=== PATIENT | female | born 1985 | race Caucasian/White ===

== ENCOUNTER 2024-03-22 00:50 | Emergency (ER) | payer MEDICAID, SELFPAY ==
[2024-03-22 00:51] VITALS: BMI 40.7
[2024-03-22 00:58] VITALS: BP 166/79; PULSE 121; RESP 26; TEMP 37.6; O2SAT 97
[2024-03-22 01:09] VITALS: TEMP 37.6
[2024-03-22] MEDS: ACETAMINOPHEN 500 MG TABLET 1000 MG PO (01:09)
[2024-03-22] MEDS: DEXAMETHASONE SOD PHOS INJ 10 MG/ML VIAL 20 MG PO (01:09)
[2024-03-22] MEDS: ALBUTEROL/IPRATROPIUM (Duoneb) RT SOL 3 ML NEBU 6 ML INH (01:19)
[2024-03-22 01:22] VITALS: PULSE 76; RESP 18; O2SAT 99
--- NOTE | 2024-03-22 01:53 | PD.ASTHM ---
ED Asthma RME/HPI General Chief Complaint: Asthma Stated Complaint: CHEST TIGHTNESS, HX ASTHMA; INHALER NOT HELPING Time Seen by Provider: 03/22/24 01:01 Arrival date/time: 03/22/24 00:50 38F with history of asthma presents to ED with 2 days of cough and SOB. Limitations: no limitations Related Data Previous Rx's ?Medication ?Instructions ?Recorded albuterol sulfate 90 mcg/actuation 2 puff inhalation QID PRN 03/26/20 aerosol inhaler (ProAir HFA) shortness of breath or wheezing #8.5 grams fluticasone 250 mcg-salmeterol 50 1 each inhalation Q12H #60 ea 05/09/20 mcg/dose blistr powdr for inhalation (Advair Diskus) prednisone 10 mg tablet 30 mg (3 x 10 mg) PO BID #18 tabs 05/09/20 hydrocodone 5 mg-acetaminophen 325 1 tab PO Q8H PRN pain #10 tabs 09/10/22 mg tablet dicyclomine 20 mg tablet 20 mg PO TID PRN pain #30 tabs 11/28/22 ondansetron 4 mg disintegrating 4 mg PO Q8H PRN nausea and 11/28/22 tablet vomiting #10 tabs cyclobenzaprine 10 mg tablet 10 mg PO HS #10 tabs 05/12/23 ibuprofen 800 mg tablet 800 mg PO Q8H PRN pain #14 tabs 05/12/23 meloxicam 7.5 mg tablet 7.5 mg PO QDAY #45 tabs 09/25/23 celecoxib 200 mg capsule 200 mg PO BID #60 caps 12/11/23 prednisone 50 mg tablet 50 mg PO QDAY #5 tabs 01/12/24 albuterol sulfate 90 mcg/actuation 2 puff inhalation Q6H PRN 03/22/24 aerosol inhaler (Ventolin HFA) shortness of breath or wheezing #8.5 grams prednisone 20 mg tablet 20 mg PO BID 4 days #8 tabs 03/22/24 Allergies Allergy/AdvReac Type Severity Reaction Status Date / Time Sulfa (Sulfonamide Allergy Severe ITCHY Verified 03/22/24 00:54 Antibiotics) SWELLING Review of Systems Review of Systems Systems Reviewed: All systems reviewed, normal except as documented Constitutional Constitutional: Reports system reviewed and no additional complaints, except as documented, Denies fever(s) and Denies headache(s) ENT Ears, Nose, Mouth, and Throat: Denies disequilibrium and Denies headache(s) Cardiovascular Cardiovascular: Reports system reviewed and no additional complaints, except as documented, Denies chest pain and Reports dyspnea Respiratory Respiratory: Reports system reviewed and no additional complaints, except as documented, Reports as per HPI, Reports cough and Reports dyspnea Gastrointestinal Gastrointestinal: Reports system reviewed and no additional complaints, except as documented, Denies abdominal pain, Denies nausea and Denies vomiting Neurologic Neurologic: Reports system reviewed and no additional complaints, except as documented, Denies confusion, Denies disequilibrium and Denies headache(s) Psychiatric Psychiatric: Denies confusion Past Medical History Past Medical History NEUROLOGIC: Positive Neurological Disorders, Seizures and Migraine CARDIAC: Positive Cardiac Disorders and Valvular Heart Disease (per patient mitral valve prolaspe); Negative Congestive Heart Failure RESPIRATORY: Positive Asthma and Pneumonia; Negative Chronic Obstructive Pulmonary Disease (COPD), Smoking or Smoking Exposure GASTROINTESTINAL: Positive Gastrointestinal Disorders and Gall Bladder Disease GENITOURINARY: Negative Genitourinary Disorders or Renal Disease REPRODUCTIVE: Positive Previous Pregnancies MUSCULOSKELETAL: Positive Musculoskeletal Disorders, Arthritis, Scoliosis and Fractures ENDOCRINE: Negative Endocrine Disorders, Diabetes Mellitus Type 1 or Diabetes Mellitus Type 2 HEMATOLOGIC: Negative Blood Disorders PSYCHO/SOCIAL: Positive Depression and Attention Deficit Hyperactivity Disorder OTHER HISTORY: Positive Shingles, MRSA and Chicken Pox; Negative Hospitalization, Falls, Blood Transfusions, Anesthesia Reactions or Cancer Family History FAMILY HISTORY: Positive Family Surgery; Negative Family Respiratory Disorders, Family Cardiac Disorders, Family Cancer or Family Anesthesia Reaction Surgical History SURGICAL: Positive Abdominal Surgery, Tubal Ligation and Section Social History SMOKING STATUS: Never smoker SUBSTANCE USE: does not use ED Exam General Limitations: Present no limitations General appearance: Present alert and in no apparent distress Head Head exam: Present atraumatic Eye Eye exam: Present normal appearance, PERRL and EOMI ENT ENT exam: Present normal exam, normal oropharynx and mucous membranes moist Neck Neck exam: Present normal inspection, full ROM and trachea midline Chest Chest inspection: Present normal inspection and symmetric chest wall rise Respiratory Respiratory exam: Present prolonged expiratory phase Cardiovascular Cardiovascular exam: Present regular rate, normal rhythm and normal heart sounds Abdominal Exam Abdominal exam: Present soft and normal bowel sounds Extremities Exam Extremities exam: Present normal inspection and full ROM Back Exam Back exam: Present normal inspection and full ROM Neurological Exam Neurological exam: Present alert, oriented X3 and CN II-XII intact Psychiatric Psychiatric exam: Present normal affect and normal mood Skin Skin exam: Present warm, dry, intact and normal color Course Quality Measures none Orders Category Date Time Status Bedside COVID-19 Antigen Test NOW Care 03/22/24 01:02 Active Bedside Influenza A&B Antigen Test NOW Care 03/22/24 01:02 Active Acetaminophen Tab [Tylenol ES Tab] Med 03/22/24 01:02 Discontinued 1,000 mg PO X1 ONE Albuterol/Ipratr Rt Jo Ann [Duoneb Rt Jo Ann] Med 03/22/24 01:02 Discontinued 6 ml INH X1 ONE Dexamethasone Inj [Decadron Inj] Med 03/22/24 01:02 Discontinued 20 mg PO X1 ONE Vital Signs Vital signs: Vital Signs Temperature 99.7 F 03/22/24 00:58 Pulse Rate 121 H 03/22/24 00:58 Respiratory Rate 26 H 03/22/24 00:58 Blood Pressure 166/79 H 03/22/24 00:58 Pulse Oximetry (%) 97 03/22/24 00:58 Oxygen Delivery Method Room Air 03/22/24 00:58 Asthma MDM Narrative MDM Narrative:: 38F with history of asthma presents to ED with 2 days of cough and SOB. Physical exam reveals no wheezing in lungs, but prolonged expiration. ENT clear. Patient is afebrile, calm, and alert. Swabs neg. Meds relieved symptoms. Likely URI causing asthma exacerbation. Patient data External records reviewed:: [facility] previous records Clinical information provided by:: patient Social determinants that could affect healthcare access:: none Patient has the following chronic illnesses:: asthma How is presenting disease/condition affected by chronic disease/condition?: exacerbated by Evaluation data The following diagnostics were reviewed and interpreted by me:: lab results Lab and/or radiology exams considered but not ordered:: ordered Interpretation Summary: above Medications / Prescriptions Medications or Prescriptions considered but not ordered:: ordered Medication administrations:: Medication Administration History Discontinued Medications Acetaminophen (Acetaminophen 500 Mg Tablet) 1,000 mg PO X1 ONE Stop: 03/22/24 01:03 Last Admin: 03/22/24 01:09 Dose: 1,000 mg Documented By: HARPER Albuterol/Ipratropium (Albuterol/Ipratropium (Duoneb) Rt Jo Ann 3 Ml Nebu) 6 ml INH X1 ONE Stop: 03/22/24 01:03 Last Admin: 03/22/24 01:19 Dose: 6 ml Documented By: Dexamethasone Sodium Phosphate (Dexamethasone Sod Phos Inj 10 Mg/Ml Vial) 20 mg PO X1 ONE Stop: 03/22/24 01:03 Last Admin: 03/22/24 01:09 Dose: 20 mg Documented By: HARPER Consultations Consultation(s) initiated? (list below): No Diagnosis Differential diagnosis asthma: Acute exacerbation, Status asthmaticus, Acute asthmatic bronchitis, PE, Pneumonia, COPD exacerbation, Pulmonary edema systolic, Pulmonary edema dystolic, ARDS, Pneumothorax and Foreign body in trachea Most likely diagnosis given after review of the tests above:: asthma exacerbation Admission Indicated Admission indicated?: not indicated Admission Request Was there a request for admission?: No Disposition Plan Disposition Plan: Discharge Discharge Attestation Discharge Attestation: The patient and all family members were given an opportunity to ask questions and understood the discharge instructions. Discharge instructions specifically effects, indications for sooner follow up or return to the emergency department, and the expected course of current diagnosis. Patient condition: Stable Discharge Plan Plan Patient Disposition: HOME (Self Care) Disposition Comment: Stable Prescriptions/Referrals Prescriptions/Med Rec: New prednisone 20 mg tablet 20 mg PO BID 4 Days Qty: 8 0RF albuterol sulfate [Ventolin HFA] 90 mcg/actuation HFA aerosol inhaler 2 puff inhalation Q6H PRN (Reason: shortness of breath or wheezing) Qty: 8.5 0RF No Action meloxicam 7.5 mg tablet 7.5 mg PO QDAY Qty: 45 3RF celecoxib 200 mg capsule 200 mg PO BID Qty: 60 3RF albuterol sulfate [ProAir HFA] 90 mcg/actuation HFA aerosol inhaler 2 puff inhalation QID PRN (Reason: shortness of breath or wheezing) Qty: 8.5 0RF fluticasone propion-salmeterol [Advair Diskus] 250-50 mcg/dose blister with device 1 each INH Q12H MDD 2 Qty: 60 0RF prednisone 10 mg tablet 30 mg PO BID Qty: 18 0RF Rx Instructions: administer with food or milk hydrocodone-acetaminophen 5-325 mg tablet 1 tab PO Q8H MDD 10 PRN (Reason: pain) Qty: 10 0RF dicyclomine 20 mg tablet 20 mg PO TID PRN (Reason: pain) Qty: 30 0RF ondansetron 4 mg tablet,disintegrating 4 mg PO Q8H PRN (Reason: nausea and vomiting) Qty: 10 0RF cyclobenzaprine 10 mg tablet 10 mg PO HS Qty: 10 0RF ibuprofen 800 mg tablet 800 mg PO Q8H PRN (Reason: pain) Qty: 14 0RF prednisone 50 mg tablet 50 mg PO QDAY Qty: 5 0RF Referrals: Dean Sherwood PA-C [Primary Care Provider] - In 1 week Problem List Clinical Impression: Asthma with acute exacerbation Patient/Caregiver Discharge Instructions Additional Instructions: Please follow-up with PCP within 24-48 hours and return immediately if symptoms worsen. Print Language: Polish Stand Alone Forms: Patient Portal Info Letter GAMALIEL/SHAYAN Supervising Physician GAMALIEL/SHAYAN Supervising Physician: Dr. Valero
[2024-03-22] MEDS: BUDESONIDE RT 0.5 MG/2 ML NEBU INH (02:44)
[2024-03-22] MEDS: ALBUTEROL/IPRATROPIUM (Duoneb) RT SOL 3 ML NEBU INH (02:44)
[2024-03-22 02:48] VITALS: PULSE 116; RESP 18; O2SAT 98
[2024-03-22 03:45] VITALS: PULSE 105; RESP 18; TEMP 36.6; O2SAT 99
== END 2024-03-22 03:45 | disposition home or self-care (01) ==
PROVIDERS: Emergency Provider Emergency Medicine; PCP Physician Assistant
DX: J45.901 Unspecified asthma with (acute) exacerbation (principal)
CPT/HCPCS: 87400; 87811; 94640; 99284; A9270; J1100

== ENCOUNTER 2024-05-07 08:02 | Emergency (ER) | payer MEDICAID, SELFPAY ==
[2024-05-07 08:03] VITALS: BMI 41.0
[2024-05-07 08:18] VITALS: BP 158/86; PULSE 86; RESP 20; TEMP 37.2; O2SAT 95
[2024-05-07] MEDS: DEXAMETHASONE SOD PHOS INJ 10 MG/ML VIAL PO (08:27)
[2024-05-07] MEDS: ALBUTEROL/IPRATROPIUM (Duoneb) RT SOL 3 ML NEBU INH (08:37)
--- NOTE | 2024-05-07 08:38 | EDNOTE_ITS ---
<Statement entered by Faby Blood MD - 05/07/24 17:53> As co-signing physician, I was present and available for consult prn. I concur with the plan and care as documented by the midlevel provider. ED Allergic Reaction RME/HPI General Chief complaint: Allergic Reaction Stated complaint: ALLERGIC REACTION FOR 2 DAYS Time Seen by Provider: 05/07/24 08:03 Arrival date/time: 05/07/24 08:02 38-year-old female presents the emergency department today stating that she believes she had allergic reaction to her cats 2 days ago patient reports she still has runny nose and congestion and wheezing. Patient reports that she ran out of her inhaler there are no other associated symptoms or aggravating factors no other modifying factors, patient denies taking medication before coming to ER today Limitations: no limitations Related Data Previous Rx's ?Medication ?Instructions ?Recorded albuterol sulfate 90 mcg/actuation 2 puff inhalation QID PRN 03/26/20 aerosol inhaler (ProAir HFA) shortness of breath or wheezing #8.5 grams fluticasone 250 mcg-salmeterol 50 1 each inhalation Q12H #60 ea 05/09/20 mcg/dose blistr powdr for inhalation (Advair Diskus) prednisone 10 mg tablet 30 mg (3 x 10 mg) PO BID #18 tabs 05/09/20 hydrocodone 5 mg-acetaminophen 325 1 tab PO Q8H PRN pain #10 tabs 09/10/22 mg tablet dicyclomine 20 mg tablet 20 mg PO TID PRN pain #30 tabs 11/28/22 ondansetron 4 mg disintegrating 4 mg PO Q8H PRN nausea and 11/28/22 tablet vomiting #10 tabs cyclobenzaprine 10 mg tablet 10 mg PO HS #10 tabs 05/12/23 ibuprofen 800 mg tablet 800 mg PO Q8H PRN pain #14 tabs 05/12/23 meloxicam 7.5 mg tablet 7.5 mg PO QDAY #45 tabs 09/25/23 celecoxib 200 mg capsule 200 mg PO BID #60 caps 12/11/23 prednisone 50 mg tablet 50 mg PO QDAY #5 tabs 01/12/24 albuterol sulfate 90 mcg/actuation 2 puff inhalation Q6H PRN 03/22/24 aerosol inhaler (Ventolin HFA) shortness of breath or wheezing #8.5 grams albuterol sulfate 90 mcg/actuation 2 puff inhalation Q6H PRN 05/07/24 aerosol inhaler (Ventolin HFA) shortness of breath or wheezing #8.5 grams prednisone 10 mg tablet 30 mg (3 x 10 mg) PO BID 3 days 05/07/24 #18 tabs Allergies Allergy/AdvReac Type Severity Reaction Status Date / Time Sulfa (Sulfonamide Allergy Severe ITCHY Verified 05/07/24 08:04 Antibiotics) SWELLING Review of Systems Review of Systems Systems Reviewed: All systems reviewed, normal except as documented Constitutional Constitutional: Reports system reviewed and no additional complaints, except as documented, Denies fever(s) and Denies headache(s) Eyes Eyes: Reports system reviewed and no additional complaints, except as documented and Denies blurry vision ENT Ears, Nose, Mouth, and Throat: Reports system reviewed and no additional complaints, except as documented, Denies headache(s), Denies nasal congestion and Denies nasal discharge Cardiovascular Cardiovascular: Reports system reviewed and no additional complaints, except as documented, Denies chest pain and Denies dyspnea Respiratory Respiratory: Reports system reviewed and no additional complaints, except as documented, Reports chest congestion, Reports cough, Denies dyspnea and Reports wheezing Gastrointestinal Gastrointestinal: Reports system reviewed and no additional complaints, except as documented and Denies abdominal pain Integumentary/Breasts Skin/Breast: Reports system reviewed and no additional complaints, except as documented and Denies rash Neurologic Neurologic: Reports system reviewed and no additional complaints, except as documented, Reports as per HPI and Denies headache(s) Allergic/Immunologic Allergic/Immunologic: Reports wheezing Past Medical History Past Medical History NEUROLOGIC: Positive Neurological Disorders, Seizures and Migraine CARDIAC: Positive Cardiac Disorders and Valvular Heart Disease (per patient mitral valve prolaspe); Negative Congestive Heart Failure RESPIRATORY: Positive Asthma and Pneumonia; Negative Chronic Obstructive Pulmonary Disease (COPD), Smoking or Smoking Exposure GASTROINTESTINAL: Positive Gastrointestinal Disorders and Gall Bladder Disease GENITOURINARY: Negative Genitourinary Disorders or Renal Disease REPRODUCTIVE: Positive Previous Pregnancies MUSCULOSKELETAL: Positive Musculoskeletal Disorders, Arthritis, Scoliosis and Fractures ENDOCRINE: Negative Endocrine Disorders, Diabetes Mellitus Type 1 or Diabetes Mellitus Type 2 HEMATOLOGIC: Negative Blood Disorders PSYCHO/SOCIAL: Positive Depression and Attention Deficit Hyperactivity Disorder OTHER HISTORY: Positive Shingles, MRSA and Chicken Pox; Negative Hospitalization, Falls, Blood Transfusions, Anesthesia Reactions or Cancer Family History FAMILY HISTORY: Positive Family Surgery; Negative Family Respiratory Disorders, Family Cardiac Disorders, Family Cancer or Family Anesthesia Reaction Surgical History SURGICAL: Positive Abdominal Surgery, Tubal Ligation and Section Social History SMOKING STATUS: Never smoker SUBSTANCE USE: does not use ED Exam General Limitations: Present no limitations General appearance: Present alert and in no apparent distress Head Head exam: Present atraumatic, normocephalic and normal inspection Eye Eye exam: Present normal appearance, PERRL and EOMI; Absent conjunctival injection ENT ENT exam: Present normal exam, normal oropharynx and mucous membranes moist Neck Neck exam: Present normal inspection, full ROM and trachea midline Chest Chest inspection: Present normal inspection and symmetric chest wall rise Respiratory Respiratory exam: Present wheezes; Absent respiratory distress Cardiovascular Cardiovascular exam: Present regular rate, normal rhythm and normal heart sounds Abdominal Exam Abdominal exam: Present soft and normal bowel sounds; Absent distention or tenderness Extremities Exam Extremities exam: Present normal inspection and full ROM Back Exam Back exam: Present normal inspection and full ROM Neurological Exam Neurological exam: Present alert, oriented X3 and CN II-XII intact Psychiatric Psychiatric exam: Present normal affect and normal mood Skin Skin exam: Present warm, dry, intact and normal color Course Quality Measures none Orders Category Date Time Status Bedside Influenza A&B Antigen Test NOW Care 05/07/24 08:24 Completed Albuterol/Ipratr Rt Jo Ann [Duoneb Rt Jo Ann] Med 05/07/24 08:24 Discontinued 3 ml INH X1 ONE Dexamethasone Inj [Decadron Inj] Med 05/07/24 08:24 Discontinued 10 mg PO X1 ONE Vital Signs Vital signs: Vital Signs Temperature 99.0 F 05/07/24 08:18 Pulse Rate 86 05/07/24 08:18 Respiratory Rate 20 05/07/24 08:18 Blood Pressure 158/86 H 05/07/24 08:18 Pulse Oximetry (%) 95 05/07/24 08:18 Oxygen Delivery Method Room Air 05/07/24 08:18 O2 saturation 95% room air within normal limits Allergic Reaction MDM Narrative MDM Narrative:: 38-year-old female presents the emergency department today stating that she believes she had allergic reaction to her cats 2 days ago patient reports she still has runny nose and congestion and wheezing. Patient reports that she ran out of her inhaler there are no other associated symptoms or aggravating factors no other modifying factors, patient denies taking medication before coming to ER today On exam patient well-appearing patient does not appear ill or toxic and in no acute distress On exam patient does have wheezing Patient checked for the flu which came back negative Patient given steroids and a breathing treatment At the time of reevaluation patient lungs are clear to auscultation patient discharged with inhaler Patient discharged home in no distress to follow-up with primary care doctor in the next 24 to 48 hours and for any worsening symptoms to return to the ER immediately Patient data External records reviewed:: [facility] previous records Clinical information provided by:: patient Social determinants that could affect healthcare access:: none Patient has the following chronic illnesses:: Asthma, allergies How is presenting disease/condition affected by chronic disease/condition?: no chronic disease Evaluation data The following diagnostics were reviewed and interpreted by me:: lab results Lab and/or radiology exams considered but not ordered:: labs obtained Interpretation Summary: Remind me Medications / Prescriptions Medications or Prescriptions considered but not ordered:: Given Medication administrations:: Medication Administration History Discontinued Medications Albuterol/Ipratropium (Albuterol/Ipratropium (Duoneb) Rt Jo Ann 3 Ml Nebu) 3 ml INH X1 ONE Stop: 05/07/24 08:25 Last Admin: 05/07/24 08:37 Dose: 3 ml Documented By: GILLES Dexamethasone Sodium Phosphate (Dexamethasone Sod Phos Inj 10 Mg/Ml Vial) 10 mg PO X1 ONE Stop: 05/07/24 08:25 Last Admin: 05/07/24 08:27 Dose: 10 mg Documented By: AC Given Consultations Consultation(s) initiated? (list below): No Diagnosis Differential Diagnosis allergic reaction: anaphylaxis, allergic reaction and urticaria Most likely diagnosis given after review of the tests above:: Allergic reaction Admission Indicated Admission indicated?: not indicated Admission Request Was there a request for admission?: No Disposition Plan Disposition Plan: Discharge Discharge Attestation Discharge Attestation: The patient and all family members were given an opportunity to ask questions and understood the discharge instructions. Discharge instructions specifically effects, indications for sooner follow up or return to the emergency department, and the expected course of current diagnosis. Patient condition: Stable Discharge Plan Plan Patient Disposition: HOME (Self Care) Disposition Comment: Stable Prescriptions/Referrals Prescriptions/Med Rec: New prednisone 10 mg tablet 30 mg PO BID 3 Days Qty: 18 0RF albuterol sulfate [Ventolin HFA] 90 mcg/actuation HFA aerosol inhaler 2 puff inhalation Q6H PRN (Reason: shortness of breath or wheezing) Qty: 8.5 0RF No Action meloxicam 7.5 mg tablet 7.5 mg PO QDAY Qty: 45 3RF celecoxib 200 mg capsule 200 mg PO BID Qty: 60 3RF albuterol sulfate [ProAir HFA] 90 mcg/actuation HFA aerosol inhaler 2 puff inhalation QID PRN (Reason: shortness of breath or wheezing) Qty: 8.5 0RF fluticasone propion-salmeterol [Advair Diskus] 250-50 mcg/dose blister with device 1 each INH Q12H MDD 2 Qty: 60 0RF prednisone 10 mg tablet 30 mg PO BID Qty: 18 0RF Rx Instructions: administer with food or milk hydrocodone-acetaminophen 5-325 mg tablet 1 tab PO Q8H MDD 10 PRN (Reason: pain) Qty: 10 0RF dicyclomine 20 mg tablet 20 mg PO TID PRN (Reason: pain) Qty: 30 0RF ondansetron 4 mg tablet,disintegrating 4 mg PO Q8H PRN (Reason: nausea and vomiting) Qty: 10 0RF cyclobenzaprine 10 mg tablet 10 mg PO HS Qty: 10 0RF ibuprofen 800 mg tablet 800 mg PO Q8H PRN (Reason: pain) Qty: 14 0RF prednisone 50 mg tablet 50 mg PO QDAY Qty: 5 0RF albuterol sulfate [Ventolin HFA] 90 mcg/actuation HFA aerosol inhaler 2 puff inhalation Q6H PRN (Reason: shortness of breath or wheezing) Qty: 8.5 0RF Problem List Clinical Impression: Allergic reaction Patient/Caregiver Discharge Instructions Education Materials: ED Medicine Reaction: Allergic Additional Instructions: Please follow up with your primary care doctor in the next 24-48hrs for any worsening symptoms return here immediately Print Language: Grenadian Stand Alone Forms: Mi Award Info., Patient Portal Info Letter PA/[employer] PROF[employer]OR Supervising Physician PA/[employer] PROFESSOR Supervising Physician: Dr. blood
[2024-05-07 08:39] VITALS: PULSE 85; RESP 18; O2SAT 99
== END 2024-05-07 08:49 | disposition home or self-care (01) ==
LOC: SERX 08:51
PROVIDERS: Emergency Provider Emergency Medicine; PCP Physician Assistant
DX: R09.81 Nasal congestion (principal); R09.89 Other specified symptoms and signs involving the circulatory and respiratory systems
CPT/HCPCS: 87400; 94640; 99283; A9270; J1100

== ENCOUNTER 2024-07-29 12:59 | Outpatient (AMB) | payer MEDICAID, SELFPAY ==
[2024-07-29 13:10] VITALS: BP 117/77; PULSE 81; RESP 18; TEMP 36.4; O2SAT 96; BMI 36.9
--- NOTE | 2024-07-29 13:10 | ORTHONT_ITS ---
Vital signs 07/29/24 13:10 07/29/24 13:21 Height 1.73 m Height Method Stated Weight 110.478 kg Weight Measurement Method Standing Scale BMI 36.9 BP 117/77 117/77 Blood Pressure Source Automatic Cuff Blood Pressure Location Right Upper Arm Position Sitting Respiration 18 18 Pulse 81 81 Pulse Source Monitor Temp 97.6 F 97.6 F Temp Source Temporal Artery Scan Pulse Oximetry (%) 96 96 Oxygen Delivery Method Room Air Med/Allergies Allergies & Medications Allergies Sulfa (Sulfonamide Antibiotics) Allergy (Severe, Verified 07/29/24 13:12) ITCHY SWELLING Medication Reconciliation albuterol sulfate 90 mcg/actuation aerosol inhaler (ProAir HFA) 2 puff inhalation QID PRN shortness of breath or wheezing #8.5 grams 03/26/20 [Rx Confirmed 07/29/24] fluticasone 250 mcg-salmeterol 50 mcg/dose blistr powdr for inhalation (Advair Diskus) 1 each inhalation Q12H #60 ea 05/09/20 [Rx Confirmed 07/29/24] prednisone 10 mg tablet 30 mg (3 x 10 mg) PO BID #18 tabs 05/09/20 [Rx Confirmed 07/29/24] hydrocodone 5 mg-acetaminophen 325 mg tablet 1 tab PO Q8H PRN pain #10 tabs 09/10/22 [Rx Confirmed 07/29/24] dicyclomine 20 mg tablet 20 mg PO TID PRN pain #30 tabs 11/28/22 [Rx Confirmed 07/29/24] ondansetron 4 mg disintegrating tablet 4 mg PO Q8H PRN nausea and vomiting #10 tabs 11/28/22 [Rx Confirmed 07/29/24] cyclobenzaprine 10 mg tablet 10 mg PO HS #10 tabs 05/12/23 [Rx Confirmed 07/29/24] ibuprofen 800 mg tablet 800 mg PO Q8H PRN pain #14 tabs 05/12/23 [Rx Confirmed 07/29/24] meloxicam 7.5 mg tablet 7.5 mg PO QDAY #45 tabs 09/25/23 [Rx Confirmed 07/29/24] celecoxib 200 mg capsule 200 mg PO BID #60 caps 12/11/23 [Rx Confirmed 07/29/24] prednisone 50 mg tablet 50 mg PO QDAY #5 tabs 01/12/24 [Rx Confirmed 07/29/24] albuterol sulfate 90 mcg/actuation aerosol inhaler (Ventolin HFA) 2 puff inhalation Q6H PRN shortness of breath or wheezing #8.5 grams 03/22/24 [Rx Confirmed 07/29/24] albuterol sulfate 90 mcg/actuation aerosol inhaler (Ventolin HFA) 2 puff in halation Q6H PRN shortness of breath or wheezing #8.5 grams 05/07/24 [Rx Confirmed 07/29/24] Office Procedures GNS Level of Care Nursing/Assessment Patient Status: Established Patient Nursing Assessment/Reassesment: Medication Reconciliation, Update PMH in EMR and Vital Signs Coordination of Care: Complex Care and Chronic Disease 1-5, Education Complex Pt/Fam, Consent,records obtained, informed consent, Results/Orders obtained and Staff clarify orders Established Patient Charge Established Patient Point Assignment: 95 Established Patient Point Charge: EP Level 3 (80-115) Surgical Proc/IM SQ injection Major Surgical Procedure: Yes (KNEE INJECTION) Medication Given Medication Given Medication Given: Yes Documented Dose Given: 4 Route: Infiitration Medication Given Medication Given Medication Given: Yes Documented Dose Given: 1 Route: Infiitration Office Meds Xylocaine 10 mg/mL (1 %) injection solution Performing Provider: Dean Robles MD Performing Location: [facility] Administered by: Dean Robles MD on 07/29/24 13:18 Dose Route Admin Location Dispensed Lot Number Expiration Date [facility] [employer] Lecturer 20 mL Infiltration 20 mL [id number] 09/04/27 80092-998-06 [facility] triamcinolone acetonide 40 mg/mL suspension for injection Performing Provider: Dean Robles MD Performing Location: [facility] Administered by: Dean Robles MD on 07/29/24 13:18 Dose Route Admin Location Dispensed Lot Number Expiration Date [facility] [employer] Lecturer 40 mg intra-articular KNEE 1 mL [id number] 03/05/26 6332-3583-32 [facility] [place] Intake Visit Data Collection New Patient or Established: Established Patient (seen at [facility] within 3 years) Reason for Visit:: RT KNEE INJECTION Seen by Clinical Staff ONLY (RN/MA): No Verbal consent obtained for Telemed visit?: No Momd Teacher Required: No PCP or OBGYN visit in last 3 months: Yes Hx Now: No Do You Feel Safe at Home: Yes Authorities Contacted: N/A Questionairres Past Medical History Past Medical History Have you ever been diagnosed with any of the following: Neurological Problems Seizures: Yes Migraine: Yes Cardiology Problems Congestive Heart Failure: No Valvular Heart Disease: Yes (per patient mitral valve prolaspe) Respiratory Problems Chronic Obstructive Pulmonary Disease (COPD): No Asthma: Yes Pneumonia: Yes Smoking: No Smoking Cessation Counseling: No Smoking Exposure: No Stomache/Intestinal Problems Gall Bladder Disease: Yes Genital/Urinary Problems Renal Disease: No Reproductive Problems Previous Pregnancies: Yes Musculoskeletal Problems Arthritis: Yes Scoliosis: Yes Fractures: Yes Endocrine Problems Diabetes Mellitus Type 1: No Diabetes Mellitus Type 2: No Psychologic Problems Depression: Yes Attention Deficit Hyperactivity Disorder: Yes Other Problems Hospitalization: No Shingles: Yes Falls: No Blood Transfusions: No Anesthesia Reactions: No MRSA: Yes Chicken Pox: Yes Cancer: No Subjective Immunization / Flu Flu Vaccine in the Last 12 Months: Yes Flu Vaccine Exclusion Criteria: Already Received Review of Systems Review of Systems: All systems negative unless otherwise noted in HPI.
--- NOTE | 2024-07-29 13:18 | PD.ORTHCLVIS ---
Vital signs 07/29/24 13:10 07/29/24 13:21 Height 1.73 m Height Method Stated Weight 110.478 kg Weight Measurement Method Standing Scale BMI 36.9 BP 117/77 117/77 Blood Pressure Source Automatic Cuff Blood Pressure Location Right Upper Arm Position Sitting Respiration 18 18 Pulse 81 81 Pulse Source Monitor Temp 97.6 F 97.6 F Temp Source Temporal Artery Scan Pulse Oximetry (%) 96 96 Oxygen Delivery Method Room Air Med/Allergies Allergies & Medications Allergies Sulfa (Sulfonamide Antibiotics) Allergy (Severe, Verified 07/29/24 13:12) ITCHY SWELLING Medication Reconciliation albuterol sulfate 90 mcg/actuation aerosol inhaler (ProAir HFA) 2 puff inhalation QID PRN shortness of breath or wheezing #8.5 grams 03/26/20 [Rx Confirmed 07/29/24] fluticasone 250 mcg-salmeterol 50 mcg/dose blistr powdr for inhalation (Advair Diskus) 1 each inhalation Q12H #60 ea 05/09/20 [Rx Confirmed 07/29/24] prednisone 10 mg tablet 30 mg (3 x 10 mg) PO BID #18 tabs 05/09/20 [Rx Confirmed 07/29/24] hydrocodone 5 mg-acetaminophen 325 mg tablet 1 tab PO Q8H PRN pain #10 tabs 09/10/22 [Rx Confirmed 07/29/24] dicyclomine 20 mg tablet 20 mg PO TID PRN pain #30 tabs 11/28/22 [Rx Confirmed 07/29/24] ondansetron 4 mg disintegrating tablet 4 mg PO Q8H PRN nausea and vomiting #10 tabs 11/28/22 [Rx Confirmed 07/29/24] cyclobenzaprine 10 mg tablet 10 mg PO HS #10 tabs 05/12/23 [Rx Confirmed 07/29/24] ibuprofen 800 mg tablet 800 mg PO Q8H PRN pain #14 tabs 05/12/23 [Rx Confirmed 07/29/24] meloxicam 7.5 mg tablet 7.5 mg PO QDAY #45 tabs 09/25/23 [Rx Confirmed 07/29/24] celecoxib 200 mg capsule 200 mg PO BID #60 caps 12/11/23 [Rx Confirmed 07/29/24] prednisone 50 mg tablet 50 mg PO QDAY #5 tabs 01/12/24 [Rx Confirmed 07/29/24] albuterol sulfate 90 mcg/actuation aerosol inhaler (Ventolin HFA) 2 puff inhalation Q6H PRN shortness of breath or wheezing #8.5 grams 03/22/24 [Rx Confirmed 07/29/24] albuterol sulfate 90 mcg/actuation aerosol inhaler (Ventolin HFA) 2 puff inhalation Q6H PRN shortness of breath or wheezing #8.5 grams 05/07/24 [Rx Confirmed 07/29/24] Exam Exam Patient is in no acute distress and is cooperative with the examination today. Breathing is nonlabored. Patient has a normal mood and affect. The patient has a gait that is Antalgic Bilateral extremities were evaluated and demonstrates sensation intact to light touch. Palpable pedal pulses are present. No significant edema is present. Bilateral hips were examined. The patient has no pain with log roll of the hips. Internal rotation to 30 degrees and external rotation to 30 degrees is painless. Negative FADIR. Right knee was examined today. The right knee is in reasonable alignment. Range of motion from 0-120 degrees. Knee is stable to varus and valgus as well as AP translation with <5mm. Patient has a negative McMurrays. There is no pain with patellofemoral compression and no crepitus noted. The knee is nontender to palpation. Left knee was examined today. The left knee is in [neutral] alignment. Range of motion from 0-110 degrees. Knee is stable to varus and valgus as well as AP translation with <5mm. Patient has a Positive McMurrays. There is [no] pain with patellofemoral compression and [no] crepitus noted. The knee is [nontender] to palpation [diffusely]. Patient has an MRI from [facility]. This demonstrates a small medial and lateral collateral ligament tear. It is not a complete tear. There is also a posterior horn medial meniscus tear that is small. Assessment and Plan Problem List (1) Arthritis of knee, right: Status: Acute Plan: Patient is a 38-year-old female with right knee pain and an MRI that shows multiple pathology including medial lateral collateral ligament tears in the medial meniscus tears. Her knee feels stable on exam. She did well with the last injections. We discussed weight loss. Recommend knee cortisone injection as patient would like to proceed with conservative treatment at this time. The risks and benefits of the procedure were reviewed with the patient and patient gave verbal consent to continue with the procedure. Procedure: performed by Dr. Robles Using sterile technique the Right knee was thoroughly prepped with alcohol, and approximately 1 cc of Kenalog 40 mg/mL and 4 cc of 1% lidocaine was injected without resistance into the medial tibial femoral joint space. The patient tolerated the procedure. Office Procedures GNS Level of Care Nursing/Assessment Patient Status: Established Patient Nursing Assessment/Reassesment: Medication Reconciliation, Update PMH in EMR and Vital Signs Coordination of Care: Complex Care and Chronic Disease 1-5, Education Complex Pt/Fam, Consent,records obtained, informed consent, Results/Orders obtained and Staff clarify orders Established Patient Charge Established Patient Point Assignment: 95 Established Patient Point Charge: EP Level 3 (80-115) Surgical Proc/IM SQ injection Major Surgical Procedure: Yes (KNEE INJECTION) Medication Given Medication Given Medication Given: Yes Documented Dose Given: 4 Route: Infiitration Medication Given Medication Given Medication Given: Yes Documented Dose Given: 1 Route: Infiitration Office Meds Xylocaine 10 mg/mL (1 %) injection solution Performing Provider: Dean Robles MD Performing Location: [facility] Administered by: Dean Robles MD on 07/29/24 13:18 Dose Route Admin Location Dispensed Lot Number Expiration Date [facility] [employer] Manager 20 mL Infiltration 20 mL [id number] 09/04/27 [id number] [facility] triamcinolone acetonide 40 mg/mL suspension for injection Performing Provider: Dean Robles MD Performing Location: [facility] Administered by: Dean Robles MD on 07/29/24 13:18 Dose Route Admin Location Dispensed Lot Number Expiration Date [facility] [employer] Manager 40 mg intra-articular KNEE 1 mL [id number] 03/05/26 [id number] [facility] [place] Intake Visit Data Collection New Patient or Established: Established Patient (seen at [facility] within 3 years) Reason for Visit:: RT KNEE INJECTION Seen by Clinical Staff ONLY (RN/MA): No Verbal consent obtained for Telemed visit?: No Perfusionist Required: No PCP or OBGYN visit in last 3 months: Yes Hx Now: No Do You Feel Safe at Home: Yes Authorities Contacted: N/A Questionairres Past Medical History Past Medical History Have you ever been diagnosed with any of the following: Neurological Problems Seizures: Yes Migraine: Yes Cardiology Problems Congestive Heart Failure: No Valvular Heart Disease: Yes (per patient mitral valve prolaspe) Respiratory Problems Chronic Obstructive Pulmonary Disease (COPD): No Asthma: Yes Pneumonia: Yes Smoking: No Smoking Cessation Counseling: No Smoking Exposure: No Stomache/Intestinal Problems Gall Bladder Disease: Yes Genital/Urinary Problems Renal Disease: No Reproductive Problems Previous Pregnancies: Yes Musculoskeletal Problems Arthritis: Yes Scoliosis: Yes Fractures: Yes Endocrine Problems Diabetes Mellitus Type 1: No Diabetes Mellitus Type 2: No Psychologic Problems Depression: Yes Attention Deficit Hyperactivity Disorder: Yes Other Problems Hospitalization: No Shingles: Yes Falls: No Blood Transfusions: No Anesthesia Reactions: No MRSA: Yes Chicken Pox: Yes Cancer: No Subjective Immunization / Flu Flu Vaccine in the Last 12 Months: Yes Flu Vaccine Exclusion Criteria: Already Received History of Present Illness Chief complaint: Knee pain Sarah is a pleasant 39-year-old female with knee pain that has been ongoing for a while. She is lost dramatic amount of weight with Wegovy. She continues to lose weight. Review of Systems Review of Systems: All systems negative unless otherwise noted in HPI.
[2024-07-29 13:21] VITALS: BP 117/77; PULSE 81; RESP 18; TEMP 36.4; O2SAT 96
== END 2024-07-29 13:22 | disposition home or self-care (01) ==
LOC: HODSRG 12:59
PROVIDERS: PCP Physician Assistant; Referring Provider Physician Assistant; Supervising Provider Orthopaedic Surgery Adult Reconstructive Orthopaedic Surgery; Visit Provider Orthopaedic Surgery Adult Reconstructive Orthopaedic Surgery
DX: M17.11 Unilateral primary osteoarthritis, right knee (principal); M25.561 Pain in right knee; S83.411A Sprain of medial collateral ligament of right knee, initial encounter; S83.241A Other tear of medial meniscus, current injury, right knee, initial encounter; X58.XXXA Exposure to other specified factors, initial encounter
CPT/HCPCS: 20610; 99213; J3301; J3490; G0463